=== PATIENT | male | born 1945 | race Caucasian/White ===

== ENCOUNTER → 2022-03-23 12:46 | Outpatient (CLI) | payer MEDICARE, SELFPAY ==
[2022-03-23 13:15] LABS: Appearance Urine UA CLEAR; Bilirubin Urine UA NEGATIVE (NEGATIVE); Color Urine UA YELLOW; Glucose Urine UA NEGATIVE (Negative); Ketones Urine UA NEGATIVE (NEGATIVE); Leukocyte Esterase Urine UA TRACE (NEGATIVE); Nitrite Urine UA NEGATIVE (Negative); Occult Blood Urine UA 3+ (Negative); Protein Urine UA 3+ (Negative); Specific Gravity Urine UA >=1.030 (1.000-1.035); Urobilinogen Urine UA 0.2 E.U./dL (0.2); pH Urine UA 5.5 (4.5-8.0)
[2022-03-23 13:27] LABS: Bacteria Urine Few (2-10); RBC Urine >100/HPF (0-5/HPF); WBC Urine 1-5/HPF (0-5/HPF)
[2022-03-23 13:28] LABS: Culture Indicated Urine Specimen Cultured
== END ==
PROVIDERS: Family Provider Specialist; Visit Provider Urology
DX: R30.0 Dysuria (principal); R31.0 Gross hematuria; D68.59 Other primary thrombophilia; G20 Parkinson's disease; R33.9 Retention of urine, unspecified; Z86.718 Personal history of other venous thrombosis and embolism; Z79.01 Long term (current) use of anticoagulants
CPT/HCPCS: 81001; 87086; 99214

== ENCOUNTER → 2022-04-27 14:29 | Outpatient (CLI) | payer MEDICARE, SELFPAY | PROVIDERS: Family Provider Specialist; PCP Student in an Organized Health Care Education/Training Program; Visit Provider Urology | DX: R30.0 Dysuria (principal); R33.9 Retention of urine, unspecified | CPT/HCPCS: 51702; 81002; 87077; 87086; 87186 ==